=== PATIENT | female | born 1965 | race Two or more races ===

== ENCOUNTER 2025-01-04 20:11 | Emergency (ER) | payer OTHER ==
[~2025-01-04] VITALS: Ht 165.1 cm; Wt 77.1 kg
[2025-01-04] MEDS ORDERED: GLUMETZA500 MG PO (20:16)
[2025-01-04] MEDS ORDERED: PREGABALIN150 MG PO (20:17)
[2025-01-04] MEDS ORDERED: WELLBUTRIN SR150 MG PO (20:18)
[2025-01-04] MEDS ORDERED: ATORVASTATIN CA40 MG PO (20:18)
[2025-01-04] MEDS ORDERED: KETOROLAC TROMETHAMINE 60 MG VIAL IM ONE (22:00)
[2025-01-04] MEDS ORDERED: ORPHENADRINE CITRATE 30 MG/ML AMPUL IM ONE (22:00)
[2025-01-04] MEDS ORDERED: DEXAMETHASONE SODIUM PHOSPHATE 4 MG/ML VIAL IM ONE (22:00)
[2025-01-04] MEDS ORDERED: IBU800 MG PO (23:24)
[2025-01-04] MEDS ORDERED: NORFLEX100MG PO (23:24)
== END 2025-01-04 23:52 | disposition home or self-care (01) ==
LOC: ER 20:11
DX: S49.81XA Other specified injuries of right shoulder and upper arm, initial encounter (principal); W19.XXXA Unspecified fall, initial encounter; Y93.I9 Activity, other involving external motion; Y92.89 Other specified places as the place of occurrence of the external cause; Y99.8 Other external cause status; M25.532 Pain in left wrist; M25.512 Pain in left shoulder; M25.552 Pain in left hip; I10 Essential (primary) hypertension
CPT/HCPCS: 73030; 73110; 73501; 96372; 99283; J1100; J1885; J2360